=== PATIENT | male | born 1945 | race Caucasian/White ===

== ENCOUNTER 2022-12-16 13:36 | Outpatient (CLI) | payer MEDICARE, OTHER | END 2022-12-16 23:59 | disposition home or self-care (01) | LOC: CARD DIAG 13:36 | PROVIDERS: ATTEND Chiropractor | DX: I08.0 Rheumatic disorders of both mitral and aortic valves (principal); I48.91 Unspecified atrial fibrillation; I50.9 Heart failure, unspecified | CPT/HCPCS: 93005; 93306 ==